=== PATIENT | male | born 1985 | race African-American/Black ===

== ENCOUNTER 2018-03-27 07:28 | Emergency (ER) | payer OTHER ==
[~2018-03-27] VITALS: Ht 170.2 cm; Wt 109.8 kg
[2018-03-27 08:14] VITALS: BP 127/89
== END 2018-03-27 09:08 | disposition home or self-care (01) ==
LOC: ER 07:35
DX: S39.012A Strain of muscle, fascia and tendon of lower back, initial encounter (principal); V43.62XA Car passenger injured in collision with other type car in traffic accident, initial encounter; Y93.89 Activity, other specified; Y99.8 Other external cause status; Y92.488 Other paved roadways as the place of occurrence of the external cause
CPT/HCPCS: 72110

== ENCOUNTER 2021-09-25 12:01 | Emergency (ER) | payer OTHER ==
[~2021-09-25] VITALS: Ht 170.2 cm; Wt 106.6 kg
[2021-09-25 12:07] VITALS: BP 153/96
== END 2021-09-25 16:57 | disposition left against medical advice (07) ==
LOC: ER 12:01
DX: K62.89 Other specified diseases of anus and rectum (principal); Z53.21 Procedure and treatment not carried out due to patient leaving prior to being seen by health care provider

== ENCOUNTER 2023-01-21 09:20 | Emergency (ER) | payer OTHER ==
[~2023-01-21] VITALS: Ht 167.6 cm; Wt 110.9 kg
[2023-01-21 10:33] LABS: Basophils # (auto) 0.2 10 ^3/uL (0-0.2); Basophils % (auto) 3.9 % (0.0-2.0); Eosinophils # (auto) 0.3 10 ^3/uL (0-0.8); Eosinophils % (auto) 5.4 % (0.0-7.0); Hematocrit 42.4 % (41.0-53.0); Hemoglobin 14.5 g/dL (13.5-17.5); Lymphocytes # (auto) 1.8 10 ^3/uL (0.4-5.4); Lymphocytes % (auto) 35.3 % (10.0-50.0); Mean Corpuscular Hemoglobin 30.2 pg (28.0-32.0); Mean Corpuscular Hgb Conc. 34.2 g/dL (32.0-36.0); Mean Corpuscular Volume 88.3 fL (80.0-100.0); Monocytes # (auto) 0.6 10 ^3/uL (0-1.3); Monocytes % (auto) 11.3 % (0.0-12.0); Neutrophils # (auto) 2.3 10 ^3/uL (1.6-8.6); Neutrophils % (auto) 44.1 % (37.0-80.0); Nucleated Red Blood Cells % 0.6 %; White Blood Cell 5.1 10^3/uL (4.4-10.8)
[2023-01-21 10:45] LABS: Albumin 3.7 g/dL (3.4-5.0); Calcium 8.9 mg/dL (8.5-10.1); Potassium 4.2 mmol/L (3.5-5.1)
[2023-01-21 10:50] LABS: Bilirubin, Total 0.7 mg/dL (0.2-1.0); Total Protein 7.5 g/dL (6.4-8.2)
[2023-01-21] MEDS ORDERED: cloNIDine HCL 0.1 MG TAB PO ONE (11:30)
[2023-01-21] MEDS ORDERED: LISI-716 PO (11:33)
[2023-01-21] MEDS ORDERED: MECLIZINE HCL 25 MG TAB PO ONE (12:30)
[2023-01-21 13:30] VITALS: BP 129/96
== END 2023-01-21 13:48 | disposition home or self-care (01) ==
LOC: ER 09:20
DX: I10 Essential (primary) hypertension (principal); R07.89 Other chest pain
CPT/HCPCS: 36415; 70450; 71046; 80053; 83880; 84484; 85025; 93005; 99285; J8597